=== PATIENT | female | born 1990 | race Caucasian/White ===

== ENCOUNTER 2016-08-14 12:03 | Inpatient (IN) | payer MEDICAID ==
[~2016-08-14] VITALS: Ht 154.9 cm; Wt 89.1 kg
[2016-08-14 12:38] VITALS: BP 105/56; PULSE 71; Ht 154.9 cm; Wt 89.1 kg
[2016-08-14] MEDS ORDERED: LIDOCAINE 1% (MPF) 30 ML INJ INJ PRN (13:00)
[2016-08-14] MEDS ORDERED: METHYLERGONOVINE 0.2 MG INJ IM PRN ×2 (13:00→22:00)
[2016-08-14] MEDS ORDERED: CARBOPROST 250 MCG INJ IM PRN ×2 (13:00→22:00)
[2016-08-14] MEDS ORDERED: LACTATED RINGER'S 1,000 ML IV PRN (13:00)
[2016-08-14] MEDS ORDERED: OXYTOCIN 30 UNITS/LR 500 ML IV SCH ×2 (13:00→20:00)
[2016-08-14] MEDS ORDERED: MISOPROSTOL 200 MCG TAB PR PRN ×2 (13:00→22:00)
[2016-08-14] MEDS ORDERED: BUTORPHANOL 2 MG INJ IV PRN ×2 (13:00)
[2016-08-14] MEDS ORDERED: OXYTOCIN 30 UNITS/LR 500 ML IV PRN ×2 (13:00→22:00)
[2016-08-14 13:10] LABS: ADD SCAN DIFF NO
[2016-08-14 13:25] LABS: BASOPHILS % 0.1 % (0.0-2.0); EOSINOPHILS # 0.1 10^3/ul (0.0-0.5); EOSINOPHILS % 0.6 % (0.0-7.0); HEMATOCRIT 38.4 % (37.0-47.0); HEMOGLOBIN 12.9 g/dl (12.0-16.0); LYMPHOCYTES % 21.5 % (15.0-51.0); MEAN CORPUSCULAR HEMOGLOBIN 31.8 pg (29.0-33.0); MEAN CORPUSCULAR HGB CONC 33.6 g/dl (32.0-37.0); MEAN CORPUSCULAR VOLUME 94.6 fl (82.0-101.0); MEAN PLATELET VOLUME 12.6 fl (7.4-10.4); MONOCYTE # 0.5 10^3/ul (0.3-0.9); NEUTROPHIL # 6.8 10^3/ul (1.6-7.5); NEUTROPHILS % 72.3 % (39.0-77.0); PLATELET COUNT 162 10^3/UL (140-415); RED BLOOD COUNT 4.06 10^6/ul (4.20-5.40); RED CELL DISTRIBUTION WIDTH 12.9 % (11.5-14.5); WHITE BLOOD COUNT 9.4 10^3/ul (4.8-10.8)
[2016-08-14] MEDS ORDERED: BUTORPHANOL 2 MG INJ ONE (13:25)
[2016-08-14 13:30] LABS: INR 0.93; PROTIME 12.5 Sec (12.2-14.2)
[2016-08-14 13:31] LABS: PARTIAL THROMBOPLASTIN TIME 28.2 Sec (25.0-35.0)
[2016-08-14] MEDS: LACTATED RINGER'S 1,000 ML IV SCH ×2 (14:09→16:59)
[2016-08-14] MEDS ORDERED: MINERAL OIL LIGHT 10 ML VIAL TOP ONE (19:30)
[2016-08-14] MEDS ORDERED: OXYTOCIN 30 UNITS/LR 500 ML IVPB ONE (20:00)
--- NOTE | 2016-08-14 20:03 | HP ---
Date/Time of Note Date/Time of Note DATE: 08/14/16 TIME: 19:54 OB - History Hx of Present Free Text/Dictation 25 y.o primigravida at 38w6d presented to triage with c/o uterine contractionsand vaginal spotting. u.c q2min membrane intact VE 4-5 80% -2 admitted for expectant management Estimated Due Date: Aug 22, 2016 : 1 Para: 0 Spontaneous : 0 Therapeutic : 0 Care: Good Care Ultrasounds: Normal mid trimester US Obstetrical Complications: None Medical Complications: None Past Family/Social History * Past Medical, Surgical, Family and Obstetric Histories reviewed from chart. Blood Type: O+ Rubella: immune RPR/VDRL: Negative GBS Status: Negative HBsAG: Negative OB Admission Exam Vital Signs Vital Signs Vital Signs Date Time Temp Pulse Resp B/P Pulse Ox O2 Delivery O2 Flow Rate FiO2 08/14/16 12:38 98.2 71 105/56 Physical Exam HEENT: WNL Heart: Rhythm Normal Lungs: Clear, Equal Abdomen: WNL Extremities: Normal Reflexes: Normal Cervical Dilatation: 4cm Effacement: 75% Station: -2 Membranes: Intact Amniotic Fluid: Unevaluable Heart Rate: 130's Accelerations: Accelerations Present Decelerations: No Decelerations Varibility: Moderate Intensity: Moderate Last 72 hours Lab Results CBC & BMP 08/14/16 13:00 OB Assessment/Plan Reason for admission: active labor Other Assessment: IUP 38w6d Plan: Expectant Management SILVIO HERNANDEZ MD August 14, 2016 20:03
--- NOTE | 2016-08-14 20:08 | LDN ---
Date/Time of Note Date/Time of Note DATE: 08/14/16 TIME: 20:04 Delivery Summary normal vaginal delivery Weeks of Gestation 38w6d Placenta Delivered: Spontaneously Meconium: none Episiotomy: No Perineal laceration: 1 Laceration repair: 00ch gut Anesthesia type: None Estimated blood loss: 200 Sponge & Needle done & correct: Yes All needle counts correct: Yes Any foreign bodies felt in the: No Problems: Delivery Information Sex Infant Sex: male Apgars 1 Minute: 8 5 Minute: 9 10 Minute: 9 Suctioning Nose & mouth suctioned at bandar: Yes Umbilical Cord Umbilical cord with: 3 Vessels Cord presentations: no nuchal cord Nuchal cord present X: 0 Cord Blood was obtained: Yes Mother & Baby Disposition Disposition Mom & Baby to Maternity; Good: Yes Mom transferred to: Other () Baby to NICU: No SILVIO HERNANDEZ MD August 14, 2016 20:08
--- NOTE | 2016-08-14 21:04 | DELSUM ---
Delivery Summary A-C Datetime Report Generated by CPN: 08/14/2016 21:04 DELIVERY PERSONNEL Class A Truck Driver: Jean, Pepper MATERNAL INFORMATION Delivery Anesthesia: None Medications in Delivery: LR WITH 30 UNITS PITOCIN Estimated Blood Loss (ml): 200 Placenta Cultured: No Maternal Complications: None LABOR SUMMARY EDC: 08/22/2016 00:00 No. Babies in Womb: 1 Attempted: No Labor Anesthesia: None LABOR INFORMATION Reason for Induction: Not Applicable Onset of Labor: 08/14/2016 15:05 Complete Dilatation: 08/14/2016 18:16 Oxytocin: N/A Group B Beta Strep: Negative Antibiotics # of Doses: 0 Steroids Given: None Reason Steroids Not Administered: Not Applicable MEMBRANES Membranes Rupture Method: Artificial Rupture of Membranes: 08/14/2016 16:08 Length of Rupture (hr): 3.23 Amniotic Fluid Color: Clear Amniotic Fluid Amount: Moderate Amniotic Fluid Odor: None STAGES OF LABOR Stage 1 hr: 3 Stage 1 min: 11 Stage 2 hr: 1 Stage 2 min: 6 Stage 3 hr: 0 Stage 3 min: 3 Total Time in Labor hr: 4 Total Time in Labor min: 20 VAGINAL DELIVERY Episiotomy: None Laceration Extension: First Degree Laceration Type: Perineal; Vaginal Laceration Repair: Yes Initial Vag Sponge Count: 20 Final Vag Sponge Count: 20 Initial Vag Sharps Count: 1 Final Vag Sharps Count: 2 Sponge Count Correct: Yes Sharps Count Correct: Yes Count Comment: 15 instruments 1 suture added BABY A INFORMATION Delivery Date/Time: 08/14/2016 19:22 Method of Delivery: Vaginal Born in Route : No : N/A Forceps: N/A Vacuum Extraction: N/A Shoulder Dystocia : N/A SHOULDER DYSTOCIA BABY A Infant Delivery Date/Time: 08/14/2016 19:22 PRESENTATION/POSITION BABY A Presentation: Cephalic Cephalic Presentation: Vertex Breech Presentation: N/A PLACENTA INFORMATION BABY A Placenta Delivery Time : 08/14/2016 19:25 Placenta Method of Delivery: Spontaneous Placenta Status: Delivered SCORES BABY A Heart Rate 1 min: >100 bpm Resp Effort 1 min: Good Cry Reflex Irritability 1 min: Cough/Sneeze/Pulls Away Muscle Tone 1 min: Active Motion Color 1 min: Blue/Pale Resuscitation Effort 1 min: Tactile Stimulation SCORE 1 MIN: 8 Heart Rate 5 min: >100 bpm Resp Effort 5 min: Good Cry Reflex Irritability 5 min: Cough/Sneeze/Pulls Away Muscle Tone 5 min: Active Motion Color 5 min: Body [place], Extremit Blue Resuscitation Effort 5 min: N/A SCORE 5 MIN: 9 INFANT INFORMATION BABY A Gestational Age at Delivery: 38.6 Gestational Status: Early Term- 37- 38.6 Weeks Infant Outcome : Liveborn Infant Condition : Stable Infant Sex: Male IDENTIFICATION/MEDS BABY A ID Band Number: [id number] ID Band Location: Right Leg; Left Arm Sensor Applied: Yes Sensor Number: [id number] Sensor Location : Cord Clamp Vitamin K Given : Not Given Erythromycin Given: Not Given WEIGHT/LENGTH BABY A Birthweight (gm): 3425 Infant Weight (lb): 7 Infant Weight (oz): 9 Length (in): 19.25 Infant Length (cm): 48.90 CORD INFORMATION BABY A No. Cord Vessels: 3 Nuchal Cord : N/A Cord Blood Taken: Yes Suction: Mouth; Nose ASSESSMENT BABY A Complications: None Physical Findings at Delivery: Caput Succedaneum; Other Physical Findings- Other: small abrasion on right nipple Infant Respirations: Appears Normal Geospatial Systems Integrator/ALS Called : No Infant Care By: JACKY Alarcon Transferred To: Remains with Mother
[2016-08-14 21:30] VITALS: BP 96/52; PULSE 79; RESP 18
[2016-08-14 22:00] VITALS: BP 113/57; PULSE 88; RESP 18
[2016-08-14] MEDS ORDERED: LANOLIN 7 GM TUBE TOP PRN (22:00)
[2016-08-14] MEDS ORDERED: ZOLPIDEM 5 MG TAB PO PRN (22:00)
[2016-08-14] MEDS ORDERED: BENZOCAINE 20% 56 ML SPRAY TOP PRN (22:00)
[2016-08-14] MEDS ORDERED: OXYCODONE/ASPIRIN (4.88/325) TAB PO PRN ×2 (22:00)
[2016-08-14] MEDS ORDERED: WITCH HAZEL/GLYCERIN PAD PR PRN (22:00)
[2016-08-14] MEDS ORDERED: LACTATED RINGER'S 1,000 ML IV SCH (23:00)
[2016-08-14] MEDS: OXYTOCIN 30 UNITS/LR 500 ML IV SCH (23:51)
[2016-08-14] MEDS: IBUPROFEN 600 MG TAB PO SCH (23:59)
[2016-08-15] VITALS: BP 121/52; RESP 18
[2016-08-15 00:30] VITALS: BP 110/55; PULSE 82; RESP 18
[2016-08-15] MEDS: OXYTOCIN 30 UNITS/LR 500 ML IV SCH (03:00)
[2016-08-15 04:30] VITALS: BP 101/52; PULSE 66; RESP 18
[2016-08-15] MEDS: IBUPROFEN 600 MG TAB PO SCH ×3 (06:27→17:22)
[2016-08-15 07:31] LABS: ADD SCAN DIFF NO
[2016-08-15 07:40] VITALS: BP 94/54; PULSE 69; RESP 19
[2016-08-15 07:47] LABS: BASOPHILS % 0.2 % (0.0-2.0); EOSINOPHILS # 0.1 10^3/ul (0.0-0.5); EOSINOPHILS % 0.6 % (0.0-7.0); HEMATOCRIT 33.7 % (37.0-47.0); HEMOGLOBIN 11.5 g/dl (12.0-16.0); LYMPHOCYTES # 2.2 10^3/ul (0.8-2.9); LYMPHOCYTES % 17.7 % (15.0-51.0); MEAN CORPUSCULAR HEMOGLOBIN 32.1 pg (29.0-33.0); MEAN CORPUSCULAR HGB CONC 34.1 g/dl (32.0-37.0); MEAN CORPUSCULAR VOLUME 94.1 fl (82.0-101.0); MEAN PLATELET VOLUME 12.6 fl (7.4-10.4); MONOCYTE # 0.7 10^3/ul (0.3-0.9); MONOCYTES % 5.5 % (0.0-11.0); NEUTROPHIL # 9.4 10^3/ul (1.6-7.5); NEUTROPHILS % 75.4 % (39.0-77.0); PLATELET COUNT 142 10^3/UL (140-415); RED BLOOD COUNT 3.58 10^6/ul (4.20-5.40); RED CELL DISTRIBUTION WIDTH 12.9 % (11.5-14.5); WHITE BLOOD COUNT 12.4 10^3/ul (4.8-10.8)
[2016-08-15] MEDS: SENNA/DOCUSATE NA (8.6MG/50MG) TAB PO SCH ×2 (08:41→20:35)
[2016-08-15 15:00] VITALS: BP 104/77; PULSE 66; RESP 18
--- NOTE | 2016-08-15 16:49 | PN ---
Date/Time of Note Date/Time of Note DATE: 08/15/16 TIME: 16:48 OB Subjective Subjective Subjective day 1 Afebrile vital signs stable abdomen soft uterus firm lochia normal extremity normal Laboratory Tests Test 08/15/16 07:20 White Blood Count 12.410^3/ul Red Blood Count 3.5810^6/ul Hemoglobin 11.5g/dl Hematocrit 33.7% Mean Corpuscular Volume 94.1fl Mean Corpuscular Hemoglobin 32.1pg Mean Corpuscular Hemoglobin Concent 34.1g/dl Red Cell Distribution Width 12.9% Platelet Count 30919^3/UL Mean Platelet Volume 12.6fl Neutrophils % 75.4% Lymphocytes % 17.7% Monocytes % 5.5% Eosinophils % 0.6% Basophils % 0.2% Nucleated Red Blood Cells % 0.0/100WBC Neutrophils # 9.410^3/ul Lymphocytes # 2.210^3/ul Monocytes # 0.710^3/ul Eosinophils # 0.110^3/ul Basophils # 0.010^3/ul Nucleated Red Blood Cells # 0.010^3/ul Current Medications Medications (Trade) Dose Ordered Sig/Nelson Route PRN Reason Start Time Stop Time Status Last Admin Dose Admin Lactated Ringer's 1,000 ml @ 125 mls/hr Q8H IV 08/14/16 12:39 08/14/16 22:00 DC 08/14/16 16:59 Oxytocin/Lactated Ringer's 500 ml @ 0 mls/hr TITRATE IV 08/14/16 13:00 08/14/16 22:00 DC Butorphanol Tartrate (Stadol) 1 mg Q2H PRN IV PAIN 08/14/16 13:00 08/14/16 22:00 DC Butorphanol Tartrate (Stadol) 2 mg Q2H PRN IV PAIN 08/14/16 13:00 08/14/16 22:00 DC 08/14/16 14:09 Lidocaine 30 ml 30 ml ONCE PRN INJ EPISIOTOMY/TEARING 08/14/16 13:00 08/14/16 22:00 DC Lactated Ringer's 1,000 ml @ 2,000 mls/hr Q30M PRN IV PRE-EPIDURAL BOLUS 08/14/16 13:00 08/14/16 22:00 DC Oxytocin/Lactated Ringer's 500 ml @ 0 mls/hr ONCE PRN IV For Hemorrhage Management 08/14/16 13:00 08/14/16 22:00 DC Methylergonovine Maleate (Methergine) 0.2 mg ONCE PRN IM VAGINAL BLEEDING 08/14/16 13:00 08/14/16 22:00 DC Carboprost Tromethamine (Hemabate) 250 mcg ONCE PRN IM VAGINAL BLEEDING 08/14/16 13:00 08/14/16 22:00 DC Misoprostol (Cytotec) 1,000 mcg ONCE PRN ME VAGINAL BLEEDING 08/14/16 13:00 08/14/16 22:00 DC Butorphanol Tartrate (Stadol) 2 mg STK-MED ONCE .ROUTE 08/14/16 13:25 08/14/16 13:26 DC Mineral Oil ONCE ONCE TOP 08/14/16 19:30 08/14/16 19:31 DC 08/14/16 19:20 Oxytocin/Lactated Ringer's 500 ml @ 125 mls/hr ONCE ONCE IVPB 08/14/16 20:00 08/14/16 22:00 DC 08/14/16 19:25 Oxytocin/Lactated Ringer's 500 ml @ 125 mls/hr Q4H IV 08/14/16 20:00 08/14/16 22:00 DC 08/14/16 19:53 Ibuprofen (Motrin) 600 mg Q6 PO 08/15/16 00:00 08/15/16 12:10 Oxycodone/Aspirin (Percodan) 1 tab Q3H PRN PO PAIN LEVEL 1-5 08/14/16 22:00 Oxycodone/Aspirin (Percodan) 2 tab Q3H PRN PO PAIN LEVEL 6-10 08/14/16 22:00 Zolpidem Tartrate (Ambien) 5 mg QHS PRN PO INSOMNIA 08/14/16 22:00 Senna/Docusate Sodium (Senokot-S) 1 tab BID PO 08/15/16 09:00 08/15/16 08:41 Witch Rosalba/ Glycerin (Tucks Pads) 1 pad BEDSIDE MEDICATION PRN ME HEMORRHOID/EPISIOTMY PAIN 08/14/16 22:00 08/14/16 23:48 Benzocaine (Dermoplast Premont) 1 spray BEDSIDE MEDICATION PRN TOP HEMORRHOID/EPISIOTMY PAIN 08/14/16 22:00 08/14/16 23:48 Lanolin ([id number]) 1 applic BEDSIDE MEDICATION PRN TOP BEDSIDE FOR NIMCO TO NIPPLES 08/14/16 22:00 08/15/16 08:42 Diphtheria/ Tetanus/Acell Pertussis 0.5 ml 0.5 ml ONCE ONCE IM* 08/16/16 09:00 08/16/16 09:01 Oxytocin/Lactated Ringer's 500 ml @ 0 mls/hr ONCE PRN IV For Hemorrhage Management 08/14/16 22:00 Methylergonovine Maleate (Methergine) 0.2 mg ONCE PRN IM VAGINAL BLEEDING 08/14/16 22:00 Carboprost Tromethamine (Hemabate) 250 mcg ONCE PRN IM VAGINAL BLEEDING 08/14/16 22:00 Misoprostol 1000 mcg 1,000 mcg ONCE PRN ME VAGINAL BLEEDING 08/14/16 22:00 Oxytocin/Lactated Ringer's 500 ml @ 125 mls/hr Q4H IV 08/14/16 23:00 08/14/16 23:51 Lactated Ringer's (Lr) 1,000 ml @ 125 mls/hr Q8H IV 08/14/16 23:00 LENCHO ESCUDERO MD August 15, 2016 16:49
[2016-08-15 20:00] VITALS: BP 102/58; PULSE 70; RESP 18
[2016-08-16] MEDS: IBUPROFEN 600 MG TAB PO SCH ×3 (00:15→12:05)
[2016-08-16 04:00] VITALS: BP 93/54; PULSE 63; RESP 18
[2016-08-16 08:00] VITALS: BP 99/55; PULSE 75; RESP 18
[2016-08-16] MEDS ORDERED: DIPHTH/TET/ACEL PERTUSS (ADULT) 0.5 ML VIAL IM* ONE (09:00)
[2016-08-16] MEDS: SENNA/DOCUSATE NA (8.6MG/50MG) TAB PO SCH (09:58)
--- NOTE | 2016-08-16 11:27 | PD.PPDC ---
EMERGENCY NURSE Discharge Instruction Condition Patient Condition: Good Diet Diet: Resume Regular Diet Activity/Restrictions Activity: Normal Activity May Shower Restrictions: No Exercising No Lifting No Driving No Sexual Activity Nothing in the Vagina No [place] No Tampons, douche Follow-up Follow-up with Physician: 2, Week/Weeks Provider Information: instructions given recommended appointment in 2 weeks to be seen at the clinic for checkup Return to clinic for PROGRAMMING MANAGER Instructions: Fever greater than 101 Chills Worsening abdominal pain Excessive Vaginal Bleeding More than 2 pads per hour Unable to tolerate diet OB Instructions: Breast Tenderness Depression Blurried Vision Headache LENCHO ESCUDERO MD Aug 16, 2016 11:27
--- NOTE | 2016-08-16 11:29 | DS ---
Date/Time of Note Date/Time of Note DATE: 08/16/16 TIME: 11:27 Discharge Summary Admission/Discharge Info Admit Date/Time August 14, 2016 at 12:20 Discharge Date/Time August 16, 2016 at 1118 Final Diagnosis Day 2 post normal vaginal delivery Patient Condition: Good Procedures Normal spontaneous vaginal delivery Hx of Present Illness Term had normal vaginal delivery Hospital Course Satisfactory uneventful Follow-up Plan Appointment clinic in 2 weeks for check Primary Care Provider Not On Staff Doctor Time spent on discharge: < 30 minutes LENCHO ESCUDERO MD Aug 16, 2016 11:29
== END 2016-08-16 15:21 | disposition home or self-care (01) | DRG 775 ==
LOC: OBT 12:03 → L-D 12:04 → OBT 12:20 → L-D 12:20 → PP1 21:44
PROVIDERS: ADMIT Obstetrics & Gynecology; ATTEND Obstetrics & Gynecology
PROC: 10E0XZZ Delivery of Products of Conception, External Approach (ICD-10-PCS; principal; 2016-08-14)
PROC: 3E00X4Z Introduction of Serum, Toxoid and Vaccine into Skin and Mucous Membranes, External Approach (ICD-10-PCS; 2016-08-16)
DX: O80 Encounter for full-term uncomplicated delivery (principal); Z23 Encounter for immunization; Z3A.38 38 weeks gestation of pregnancy; Z37.0 Single live birth
CPT/HCPCS: 85025; 85610; 85730; 86592; 86900; 86901; 87340; 90715; G0463; J0595; J2210; J2590; J7120

== ENCOUNTER 2016-10-08 23:41 | Emergency (ER) | payer MEDICAID ==
[~2016-10-08] VITALS: Ht 154.9 cm; Wt 73.0 kg
[2016-10-08 23:49] VITALS: Ht 154.9 cm; Wt 73.0 kg
[2016-10-09] MEDS ORDERED: DIPHENHYDRAMINE 50 MG INJ IV STA (03:10)
[2016-10-09] MEDS ORDERED: ACETAMINOPHEN 325 MG TAB PO STA (03:10)
[2016-10-09] MEDS ORDERED: METOCLOPRAMIDE 10 MG INJ IV STA (03:10)
--- NOTE | 2016-10-09 03:13 | ERD ---
ER Documentation Chief Complaint Date/Time DATE: 10/09/16 TIME: 03:10 Chief Complaint fever/body aches x 2 days (CARLIN,MATT) HPI fever and body aches (CARLIN,MATT) This is a 25-year-old female comes complaints of low-grade fever body aches and sore throat over the past 2 days. Mild fever no chills. No sick contacts. No neck stiffness. No visual acuity changes. No other current complaints (ASHANTIHAJACQUELYN,TATA Ta) ROS All systems reviewed and are negative except as per history of present illness. (CARLIN,MATT) Medications Home Meds No Active Prescriptions or Reported Meds Allergies Allergies: Coded Allergies: No Known Allergies (Verified Allergy, Unknown, 10/08/16) PMhx/Soc Medical and Surgical Hx: pt denies Medical Hx, pt denies Surgical Hx History of Surgery: No Anesthesia Reaction: No Hx Neurological Disorder: No Hx Respiratory Disorders: No Hx Cardiac Disorders: No Hx Psychiatric Problems: No Hx Miscellaneous Medical Probl: No Hx Alcohol Use: No Hx Substance Use: No Hx Tobacco Use: No Smoking Status: Never smoker (CARLIN,MATT) Physical Exam Vitals 102.6 oral (CARLIN,MATT) Physical Exam Const: [] Head: Atraumatic Eyes: Normal Conjunctiva ENT: Normal External Ears, Nose and Mouth. Neck: Full range of motion..~ No meningismus. Resp: Clear to auscultation bilaterally Cardio: Regular rate and rhythm, no murmurs Abd: Soft, non tender, non distended. Normal bowel sounds Skin: No petechiae or rashes Back: No midline or flank tenderness Ext: No cyanosis, or edema Neur: Awake and alert Psych: Normal Mood and Affect (CARLIN,MATT) Result Diagram: 10/09/16 0451 Results 24 hrs Laboratory Tests Test 10/09/16 04:51 White Blood Count 12.110^3/ul Red Blood Count 4.2310^6/ul Hemoglobin 13.5g/dl Hematocrit 38.8% Mean Corpuscular Volume 91.7fl Mean Corpuscular Hemoglobin 31.9pg Mean Corpuscular Hemoglobin Concent 34.8g/dl Red Cell Distribution Width 12.2% Platelet Count 83855^3/UL Mean Platelet Volume 12.5fl Neutrophils % 73.6% Lymphocytes % 16.6% Monocytes % 6.4% Eosinophils % 2.8% Basophils % 0.2% Nucleated Red Blood Cells % 0.0/100WBC Neutrophils # 8.910^3/ul Lymphocytes # 2.010^3/ul Monocytes # 0.810^3/ul Eosinophils # 0.310^3/ul Basophils # 0.010^3/ul Nucleated Red Blood Cells # 0.010^3/ul Prothrombin Time 14.1Sec Prothrombin Time Ratio 1.1 INR International Normalized Ratio 1.09 Activated Partial Thromboplast Time 36.1Sec Current Medications Medications (Trade) Dose Ordered Sig/Nelson Route PRN Reason Start Time Stop Time Status Last Admin Dose Admin Acetaminophen (Tylenol Tab) 650 mg ONCE STAT PO 10/09/16 03:10 10/09/16 03:18 DC 10/09/16 03:10 Metoclopramide HCl (Reglan) 10 mg ONCE STAT IV 10/09/16 03:10 10/09/16 03:18 DC 10/09/16 03:10 Diphenhydramine HCl (Benadryl) 25 mg ONCE STAT IV 10/09/16 03:10 10/09/16 03:18 DC 10/09/16 03:10 (TATA STARK) Procedures/MDM Chest X-ray 1V Interpreted by me: Soft Tissue: No acute abnormalities Bones: No acute abnormalities Mediastinum/Cardiac Silhouette/Lungs: [No acute abnormalities] Medical decision-makin-year-old female with evidence of what looks to be a viral syndrome. At this point she is clinically stable for outpatient management. She will be discharged home with Tylenol and prednisone. She is to return for any worsening symptoms, any neck stiffness, any headache. At this point no evidence of any significant viral or bacterial process. Follow with PCP. (TATA STARK) Departure Diagnosis: Primary Impression: Viral URI Condition: Stable MATT GILLIS Oct 09, 2016 03:13 TATA STARK Oct 09, 2016 05:49
--- NOTE | 2016-10-09 04:11 | RADRPT ---
PROCEDURE: CT BRAIN WITHOUT CONTRAST CLINICAL INDICATION: 25-year-old female with headaches. TECHNIQUE: The study was performed utilizing a GE Real Time Translationpeed VCT 64-slice CT scanner. Direct axia l sections were obtained from the foramen magnum to the vertex without the use of intravenous contra st material. Sagittal and coronal reformations were obtained. One or more the following dose reduct ion techniques were utilized: automated exposure control, adjustment of the mA and/or kV according t o patient's size or use of iterative reconstruction technique. The images were viewed on a PACS NAVX. CTD/vol = 45.0 mGy; Total Exam DLP = 720.2 mGy-cm. COMPARISON: None. FINDINGS: The ventricles have a normal size, shape and position. There is no evidence for mass effect or midl ine shift. There are no intracranial areas of abnormal attenuation. There is no evidence for acute intra or extra-axial blood. The bony calvarium is intact. The partially visualized paranasal sinuse s and mastoid air cells are without significant abnormal soft tissue. IMPRESSION: Unremarkable noncontrast CT scan of the brain. .Popeye Young MD, MD Date Time Electronically viewed and signed by .Popeye Young MD, on 10/09/2016 04:11 .Bishnu/
[2016-10-09 05:02] LABS: BASOPHILS % 0.2 % (0.0-2.0); EOSINOPHILS # 0.3 10^3/ul (0.0-0.5); EOSINOPHILS % 2.8 % (0.0-7.0); HEMATOCRIT 38.8 % (37.0-47.0); HEMOGLOBIN 13.5 g/dl (12.0-16.0); LYMPHOCYTES % 16.6 % (15.0-51.0); MEAN CORPUSCULAR HEMOGLOBIN 31.9 pg (29.0-33.0); MEAN CORPUSCULAR HGB CONC 34.8 g/dl (32.0-37.0); MEAN CORPUSCULAR VOLUME 91.7 fl (82.0-101.0); MEAN PLATELET VOLUME 12.5 fl (7.4-10.4); MONOCYTE # 0.8 10^3/ul (0.3-0.9); MONOCYTES % 6.4 % (0.0-11.0); NEUTROPHIL # 8.9 10^3/ul (1.6-7.5); NEUTROPHILS % 73.6 % (39.0-77.0); PLATELET COUNT 169 10^3/UL (140-415); RED BLOOD COUNT 4.23 10^6/ul (4.20-5.40); RED CELL DISTRIBUTION WIDTH 12.2 % (11.5-14.5); WHITE BLOOD COUNT 12.1 10^3/ul (4.8-10.8)
[2016-10-09 05:19] LABS: CALCIUM 9.2 mg/dl (8.4-10.2); CREATININE 0.83 mg/dl (0.44-1.00)
--- NOTE | 2016-10-09 05:21 | RADRPT ---
PROCEDURE: CHEST - 1 VIEW CLINICAL INDICATION: 25-year-old female with chest pain. TECHNIQUE: A single frontal AP portable view of the chest was performed. The images were reviewed on a PACS workstation. COMPARISON: None. FINDINGS: The cardiomediastinal silhouette has a normal appearance. There is no evidence for an infiltrate. T he pulmonary vascularity is within normal limits. There is no evidence for pneumothorax or pneumomed iastinum. The osseous structures are intact. IMPRESSION: No evidence for active cardiopulmonary disease. .Popeye Young MD, MD Date Time Electronically viewed and signed by .Popeye Young MD, on 10/09/2016 05:21 .M/
[2016-10-09 05:22] LABS: INR 1.09; PROTIME 14.1 Sec (12.2-14.2); PT RATIO 1.1
[2016-10-09 05:23] LABS: PARTIAL THROMBOPLASTIN TIME 36.1 Sec (25.0-35.0)
[2016-10-09] MEDS ORDERED: PRED20TA PO (05:50)
[2016-10-09] MEDS ORDERED: IBUP-1542 PO (05:50)
[2016-10-09 06:19] VITALS: BP 110/78; PULSE 75; RESP 16; TEMP 99.6
[2016-10-09 06:39] LABS: URINE BLOOD (Dip) POC 1+ (NEGATIVE)
== END 2016-10-09 06:49 | disposition home or self-care (01) ==
LOC: FTE 23:41 → E/R 10-09 06:49
DX: J06.9 Acute upper respiratory infection, unspecified (principal); R07.9 Chest pain, unspecified; R51 Headache
CPT/HCPCS: 36415; 70450; 71010; 80048; 81003; 85025; 85610; 85730; 96374; 96375; J1200; J2765